=== PATIENT | male | born 1990 | race Two or more races ===

== ENCOUNTER 2023-01-13 21:31 | Emergency (ER) | payer OTHER ==
[~2023-01-13] VITALS: Ht 182.9 cm; Wt 86.2 kg
--- NOTE | 2023-01-13 22:28 | NUR ---
Patient AOx4, able to express his concerns. Patient states he was lifting weight when he felt his Right shoulder might have dislocated. Girlfriend at bedside, per patietns request. Discussed plan of care, patient verbalized agreement. All safety precautions taken.
[2023-01-13] MEDS ORDERED: MORPHINE SULFATE INJ 2 MG/ML DISP.SYRIN IV ONE (22:30)
[2023-01-13] MEDS ORDERED: MORPHINE SULFATE INJ 4 MG/ML DISP.SYRIN ONE (22:42)
[2023-01-13] MEDS ORDERED: ONDANSETRON HCL/PF 4 MG/2 ML VIAL ONE (22:47)
[2023-01-13] MEDS ORDERED: ONDANSETRON HCL/PF - ER 4 MG/2 ML VIAL IV ONE (23:00)
[2023-01-13] MEDS ORDERED: NAPR-1164 PO (23:37)
[2023-01-13] MEDS ORDERED: TYL2T PO (23:37)
--- NOTE | 2023-01-13 23:40 | NUR ---
Patient states he is ready for discharge. Educated patient on importance of follow up care. hira MCDANIEL meets d/c criteria. Advised to call 911 or go to nearest ER in case of an emergency. Discharged paperwork signed.
[2023-01-13 23:47] VITALS: BP 138/70
== END 2023-01-13 23:48 | disposition home or self-care (01) ==
LOC: ER 21:41
DX: S43.014A Anterior dislocation of right humerus, initial encounter (principal); X50.0XXA Overexertion from strenuous movement or load, initial encounter; Y93.43 Activity, gymnastics; Y92.39 Other specified sports and athletic area as the place of occurrence of the external cause; Y99.8 Other external cause status
CPT/HCPCS: 99284; 23650; 96374; 73030 ×2; J2270; J2405